=== PATIENT | female | born 1980 | race Caucasian/White ===

== ENCOUNTER 2018-06-06 15:21 | Emergency (ER) | payer OTHER, MEDICAID ==
--- NOTE | 2018-06-06 16:49 | EDPHY ---
H & P Stated Complaint: Twisted R knee 2 days ago Time Seen by Provider: 06/06/18 16:49 - Personal History LMP (Females 10-55): Extended Cycle BCP/Inj Current Tetanus Diphtheria and Acellular Pertussis (TDAP): Unsure - Medical/Surgical History Hx Asthma: Yes Other PMH: thyroid. HTN. hiatal hernia. bipolar. migraines - Social History Smoking Status: Current every day smoker Constitutional: Initial Vital Signs Temperature (C) 37.2 C 06/06/18 15:28 Heart Rate 72 06/06/18 15:28 Respiratory Rate 18 06/06/18 15:28 Blood Pressure 128/80 H 06/06/18 15:28 O2 Sat (%) 97 06/06/18 15:28 O2 Delivery Mode Room Air Allergies/Adverse Reactions: doxycycline Allergy (Severe, Verified 06/06/18 15:26) Anaphylaxis morphine Allergy (Severe, Verified 06/06/18 15:26) Anaphylaxis Home Medications: Medication Instructions Recorded Fluticasone Propionate [Flonase 9.9 ml NS 06/06/18 Allergy Relief] Ipratropium/Albuterol [Combivent 1 inh IH QID 06/06/18 Respimat Inhal [place](*)] Levothyroxine [Synthroid 125 mcg 125 mcg PO DAILY06 06/06/18 (*)] Lisinopril/Hydrochlorothiazide 1 each PO 06/06/18 [Lisinopril-Hctz 10-12.5 mg Tab] Pantoprazole Sodium [Protonix 40mg 40 mg PO 06/06/18 (*)] Propranolol HCl [Inderal 40mg (*)] 40 mg PO 06/06/18 Ziprasidone HCl [Geodon 20MG (*)] 20 mg PO BID 06/06/18 lamoTRIgine [LamICTAL] 25 mg PO 06/06/18 Medical Decision Making - Diagnostics Imaging Results: Imaging Impressions Knee X-Ray 06/06/18 16:26 Impression: Small effusion consistent with a knee sprain. ED Course/Re-evaluation: CHIEF COMPLAINT: HISTORY OF PRESENT ILLNESS: must have 4 elements: Location, Quality, Severity , Duration, Timing, Context, Modifying Factors, Associated Signs and Symptoms REVIEW OF SYSTEMS: A 10 point review of systems was performed and is negative with the exception of the elements mentioned in the history of present illness. PHYSICAL EXAM: HR, BP, O2 Sat, RR. Temp noted General Appearance: Alert, well hydrated, appropriate, and non-toxic appearing. Head: Atraumatic without scalp tenderness or obvious injury Eyes: Pupils equal, round, reactive to light and accommodation, EOMI, no trauma , no injection. Ears: Clear bilaterally, no perforation, normal landmarks Nose: Atraumatic, no rhinorrhea, clear. Throat: There is no erythema or exudates, no lesions, normal tonsils, mucus membranes moist. Neck: Supple, 2+ carotid upstroke, nontender, no lymphadenopathy. Respiratory: No retractions, no distress, no wheezes, and no accessory muscle use. Lungs are clear to auscultation bilaterally. Cardiovascular: Regular rate and rhythm, no murmurs, rubs, or gallops. Bilateral carotid, radial, dorsalis pedis, and posterior tibial pulses intact. Good capillary refill all extremities. Gastrointestinal: Abdomen is soft, nontender, non-distended, no masses, no rebound, no guarding, no peritoneal signs. Musculoskeletal: Normal active ROM of all extremities, atraumatic. Neurological: Alert, appropriate, and interactive. The patient has normal DTRs and non-focal cranial nerves, motor, sensory, and cerebellar exam. Skin: No rashes, good turgor, no nodules on palpation. Past medical history: Past surgical history: Family history: Social history: DIAGNOSTICS/PROCEDURES/CRITICAL CARE TIME: DIFFERENTIAL DIAGNOSIS: MEDICAL DECISION MAKING: Departure - Departure Referrals: NONE *PRIMARY CARE P,. [Primary Care Provider] - As per Instructions
[2018-06-06] MEDS ORDERED: KETOROLAC 30 MG/1 ML SDV IM ONE (17:06)
--- NOTE | 2018-06-06 17:08 | EDPHY ---
H & P Stated Complaint: Twisted R knee 2 days ago Time Seen by Provider: 06/06/18 16:49 HPI/ROS: CHIEF COMPLAINT: Right knee pain HISTORY OF PRESENT ILLNESS: 38-year-old female presents with right knee pain. 3 days ago, she slipped down an embankment and twisted her knee. She did not fall to the ground. Difficulty weight-bearing since then, associated with moderate pain. No other injuries. ROS: No numbness, weakness, excessive bleeding, syncopal episode, other injury. - Personal History LMP (Females 10-55): Extended Cycle BCP/Inj Current Tetanus Diphtheria and Acellular Pertussis (TDAP): Unsure - Medical/Surgical History Hx Asthma: Yes Other PMH: thyroid. HTN. hiatal hernia. bipolar. migraines - Social History Smoking Status: Current every day smoker - Physical Exam Exam: Alert, pleasant Extremities: Right knee-ecchymosis anteriorly, knee effusion present, no pain or laxity with varus or valgus stress, pain with knee flexion Skin: Intact Neuro: Motor and sensory intact Vascular: Capillary refill brisk distally. Constitutional: Initial Vital Signs Temperature (C) 37.2 C 06/06/18 15:28 Heart Rate 72 06/06/18 15:28 Respiratory Rate 18 06/06/18 15:28 Blood Pressure 128/80 H 06/06/18 15:28 O2 Sat (%) 97 06/06/18 15:28 O2 Delivery Mode Room Air Allergies/Adverse Reactions: doxycycline Allergy (Severe, Verified 06/06/18 15:26) Anaphylaxis morphine Allergy (Severe, Verified 06/06/18 15:26) Anaphylaxis Home Medications: Medication Instructions Recorded Fluticasone Propionate [Flonase 9.9 ml NS 06/06/18 Allergy Relief] Ipratropium/Albuterol [Combivent 1 inh IH QID 06/06/18 Respimat Inhal [place](*)] Levothyroxine [Synthroid 125 mcg 125 mcg PO DAILY06 06/06/18 (*)] Lisinopril/Hydrochlorothiazide 1 each PO 06/06/18 [Lisinopril-Hctz 10-12.5 mg Tab] Pantoprazole Sodium [Protonix 40mg 40 mg PO 06/06/18 (*)] Propranolol HCl [Inderal 40mg (*)] 40 mg PO 06/06/18 Ziprasidone HCl [Geodon 20MG (*)] 20 mg PO BID 06/06/18 lamoTRIgine [LamICTAL] 25 mg PO 06/06/18 Medical Decision Making - Diagnostics Imaging Results: Imaging Impressions Knee X-Ray 06/06/18 16:26 Impression: Small effusion consistent with a knee sprain. Imaging: I viewed and interpreted images myself ED Course/Re-evaluation: A knee immobilizer was placed and crutches dispensed. Departure - Departure Disposition: Home, Routine, Self-Care Clinical Impression: Strain of right knee Qualifiers: Encounter type: initial encounter Qualified Code(s): S86.911A - Strain of unspecified muscle(s) and tendon(s) at lower leg level, right leg, initial encounter Condition: Good Instructions: Crutch Instructions (ED), Knee Pain (ED), Knee Immobilizer (ED) Additional Instructions: Ibuprofen 600 mg 3 times daily while the pain persists. Call your primary care physician to make an appointment. Referrals: Maria Dolores Maciel MD [Medical Doctor] - As per Instructions
[2018-06-06 17:20] VITALS: BP 124/72
== END 2018-06-06 17:20 | disposition home or self-care (01) ==
DX: S86.911A Strain of unspecified muscle(s) and tendon(s) at lower leg level, right leg, initial encounter (principal); F17.200 Nicotine dependence, unspecified, uncomplicated; W01.0XXA Fall on same level from slipping, tripping and stumbling without subsequent striking against object, initial encounter
CPT/HCPCS: 73564; 96372; 99283; J1885; L1830

== ENCOUNTER 2019-03-29 16:57 | Emergency (ER) | payer OTHER, MEDICAID | END 2019-03-29 17:42 | disposition home or self-care (01) ==